=== PATIENT | female | born 1955 | race Caucasian/White ===

== ENCOUNTER 2018-12-14 08:41 | Outpatient (CLI) | payer MEDICARE, MEDICAID ==
[~2018-12-14] VITALS: Ht 157.5 cm; Wt 86.2 kg
[~2018-12-14 08:41] MED LIST: ASPI-1169 PO; ATOR10TA PO; AZIT500T2 PO; LISI-603 PO; NAPR500T6 PO; PANT40TA4 PO; TRAM50TA2 PO
[2018-12-14] MEDS ORDERED: IV NS 0.9% 500 ML IV ONE (09:30)
[2018-12-14] MEDS ORDERED: METOPROLOL TARTRATE INJ 5 MG/5 ML AMPUL IVP ONE (09:30)
[2018-12-14 12:04] LABS: BASOPHILS % (AUTO) 0.5 % (0.0-2.0); EOSINOPHILS % (AUTO) 2.4 % (0.0-6.0); HEMATOCRIT 39 % (33-45); HEMOGLOBIN 13.3 g/dL (11.5-14.8); LYMPHOCYTES # (AUTO) 2.5 /CMM (0.8-4.8); LYMPHOCYTES % (AUTO) 38.3 % (20.0-44.0); MEAN CORPUSCULAR HGB CONC 34 g/dl (31.0-36.0); MEAN CORPUSCULAR VOLUME 86 fL (82-100); MONOCYTES # (AUTO) 0.5 /CMM (0.1-1.30); NEUTROPHILS # (AUTO) 3.4 /CMM (1.8-8.9); NEUTROPHILS % (AUTO) 51.8 % (43.0-81.0); PLATELET COUNT (AUTO) 221 /CMM (150-450); WHITE BLOOD COUNT (AUTO) 6.5 K/uL (4.3-11.0)
[2018-12-14 12:12] LABS: ALBUMIN 3.8 g/dL (3.4-5.0); BILIRUBIN,TOTAL 0.5 mg/dL (0.2-1.0); CALCIUM, SERUM 9.1 mg/dL (8.5-10.1); CREATININE 0.6 mg/dL (0.6-1.3); POTASSIUM 4.1 mmol/L (3.5-5.1); TOTAL PROTEIN, SERUM 8.2 g/dL (6.4-8.2)
[2018-12-22 08:09] LABS: RENIN, PLASMA 1.156 ng/mL/hr (0.167-5.380)
== END 2018-12-14 23:59 | disposition home or self-care (01) ==
LOC: US 08:41
PROVIDERS: ATTEND Internal Medicine Interventional Cardiology
DX: R07.9 Chest pain, unspecified (principal); I10 Essential (primary) hypertension; E11.9 Type 2 diabetes mellitus without complications; E78.5 Hyperlipidemia, unspecified; I70.1 Atherosclerosis of renal artery; M47.814 Spondylosis without myelopathy or radiculopathy, thoracic region; K44.9 Diaphragmatic hernia without obstruction or gangrene; Z79.899 Other long term (current) drug therapy
CPT/HCPCS: 36415; 75574; 80053-TC; 80061-TC; 82088; 84244; 85025-TC

== ENCOUNTER 2020-05-22 18:20 | Emergency (ER) | payer MEDICARE, OTHER ==
[~2020-05-22] VITALS: Ht 170.2 cm; Wt 87.5 kg
[2020-05-22] MEDS ORDERED: ONDANSETRON HCL/PF 4 MG/2 ML VIAL IVP ONE (18:30)
[2020-05-22] MEDS ORDERED: MORPHINE SULFATE INJ 4 MG/ML DISP.SYRIN ONE (18:30)
[2020-05-22] MEDS ORDERED: IV NS 0.9% 500 ML BAG IV ONE (18:30)
[2020-05-22] MEDS ORDERED: ONDANSETRON HCL/PF 4 MG/2 ML VIAL ONE (18:30)
[2020-05-22] MEDS ORDERED: MORPHINE SULFATE INJ 2 MG/ML DISP.SYRIN IV ONE (18:30)
[2020-05-22 18:37] LABS: BASOPHILS % (AUTO) 0.4 % (0.0-2.0); EOSINOPHILS % (AUTO) 1.2 % (0.0-6.0); HEMATOCRIT 39 % (33-45); LYMPHOCYTES # (AUTO) 2.1 /CMM (0.8-4.8); LYMPHOCYTES % (AUTO) 22.3 % (20.0-44.0); MEAN CORPUSCULAR HGB CONC 33 g/dl (31.0-36.0); MEAN CORPUSCULAR VOLUME 84 fL (82-100); MONOCYTES # (AUTO) 0.6 /CMM (0.1-1.30); MONOCYTES % (AUTO) 6.7 % (2.0-12.0); NEUTROPHILS # (AUTO) 6.5 /CMM (1.8-8.9); NEUTROPHILS % (AUTO) 69.4 % (43.0-81.0); PLATELET COUNT (AUTO) 195 /CMM (150-450); RED BLOOD CELL COUNT(AUTO) 4.61 MIL/uL (4.0-5.2); WHITE BLOOD COUNT (AUTO) 9.4 K/uL (4.3-11.0)
[2020-05-22 18:46] LABS: BILIRUBIN,URINE Negative (NEGATIVE); BLOOD, URINE Negative Ery/uL (NEGATIVE); COLOR,URINE Yellow (YELLOW); KETONES,URINE Negative (NEGATIVE); LEUKOCYTE ESTERASE ,URINE Negative (NEGATIVE); NITRITE, URINE Negative (NEGATIVE); PROTEIN,URINE Negative (NEGATIVE); UGLUCOSE Negative (NEGATIVE); UROBILINOGEN,URINE 0.2 EU/dL (0.2)
[2020-05-22 18:47] LABS: APPEARANCE,URINE SLIGHTLY HAZY (CLEAR)
[2020-05-22 18:47] LABS: CALCIUM, SERUM 9.2 mg/dL (8.5-10.1); CREATININE 0.6 mg/dL (0.6-1.3); POTASSIUM 3.8 mmol/L (3.5-5.1)
--- NOTE | 2020-05-22 18:48 | NUR ---
urine collected and sent to lab
--- NOTE | 2020-05-22 18:48 | NUR ---
patient came in to the er c/o right flank pain radiating to RLQ. On room air, breathing evenly and unlabored. connected to the monitor and pulse ox. kept comfortable, will continue to montior accordingly.
[2020-05-22 18:58] LABS: BACTERIA,URINE Rare /HPF (None Seen); RBC,URINE 0-2 /HPF (0-2); SQUAMOUS EPITHELIAL CELL,UR Few /HPF (None Seen); WBC,URINE 0-2 /HPF (0-3)
[2020-05-22 18:58] LABS: ALBUMIN 3.9 g/dL (3.4-5.0); BILIRUBIN,DIRECT 0.2 mg/dL (0.0-0.2); BILIRUBIN,TOTAL 0.7 mg/dL (0.2-1.0); TOTAL PROTEIN, SERUM 7.9 g/dL (6.4-8.2)
--- NOTE | 2020-05-22 19:15 | NUR ---
PT HAS NO MEDICAL MEDICAL COMPLAINTS AT THIS TIME. AAOX4, VSS. WILL CONTINUE TO MONITOR
--- NOTE | 2020-05-22 19:36 | NUR ---
REPORT RECEIVED FROM DAVID CHENG FOR KANIKA
--- NOTE | 2020-05-22 21:34 | NUR ---
Patient discharged to home in stable condition. Written and verbal after care instructions given. Patient verbalizes understanding of instruction.IV removed. Catheter intact and site benign. Pressure and 4x4 applied to site. No bleeding noted.pt. ambulatory with a steady gait
[2020-05-22 21:35] VITALS: BP 128/74
== END 2020-05-22 21:35 | disposition home or self-care (01) ==
LOC: ER 18:30
DX: R10.9 Unspecified abdominal pain (principal); I10 Essential (primary) hypertension; Z79.899 Other long term (current) drug therapy; Z79.82 Long term (current) use of aspirin
CPT/HCPCS: 36415; 74176; 80048; 80076; 81001; 83690; 85025; 87086; 96374; 96375; 99284; J2270; J2405; J7030; J7040; 81000-TC

== ENCOUNTER 2020-10-22 21:20 | Emergency (ER) | payer MEDICARE, OTHER ==
[~2020-10-22] VITALS: Ht 170.2 cm; Wt 87.5 kg
[~2020-10-22 21:20] MED LIST changes: -PANT40TA4 PO; +PANT40TA49 PO
[2020-10-22 21:58] LABS: BASOPHILS % (AUTO) 0.7 % (0.0-2.0); EOSINOPHILS % (AUTO) 1.1 % (0.0-6.0); HEMATOCRIT 40 % (33-45); HEMOGLOBIN 13.5 g/dL (11.5-14.8); LYMPHOCYTES # (AUTO) 1.4 /CMM (0.8-4.8); LYMPHOCYTES % (AUTO) 34.5 % (20.0-44.0); MEAN CORPUSCULAR HGB CONC 34 g/dl (31.0-36.0); MEAN CORPUSCULAR VOLUME 85 fL (82-100); MONOCYTES # (AUTO) 0.7 /CMM (0.1-1.30); MONOCYTES % (AUTO) 17.5 % (2.0-12.0); NEUTROPHILS # (AUTO) 1.9 /CMM (1.8-8.9); NEUTROPHILS % (AUTO) 46.2 % (43.0-81.0); PLATELET COUNT (AUTO) 151 /CMM (150-450); RED BLOOD CELL COUNT(AUTO) 4.68 MIL/uL (4.0-5.2)
--- NOTE | 2020-10-22 21:59 | NUR ---
RUBY FROM HOME TO ER BED 6. AAOX4. SOB BUT SATTING AT 98%. AMBULATORY. CAME IN FOR SOB, COUGH AND CONGESTION. PT WAS COVID POSITIVE YESTERDAY. AWAITING MD FOR EVAL. ORDERS RECEIVED, NOTED AND CARRIED OUT. IV LINE ESTABLISHED ON L HAND 20G, BLOOD DRAWN AND GIVEN TO LAB. PT ON MONITOR.
[2020-10-22 22:18] LABS: CALCIUM, SERUM 8.9 mg/dL (8.5-10.1); CREATININE 0.6 mg/dL (0.6-1.3)
--- NOTE | 2020-10-22 23:03 | NUR ---
Patient discharged to home in stable condition. Written and verbal after care instructions given. Patient verbalizes understanding of instruction. Pt ambulatory with a steady gait IV removed. Catheter intact and site benign. Pressure and 4x4 applied to site. No bleeding noted.
[2020-10-22 23:04] VITALS: BP 169/90
[2020-10-22 23:14] LABS: LYMPHOCYTES % (MANUAL) 34 % (16-48); MONOCYTES % (MANUAL) 18 % (0-11.0); NEUTROPHILS % (MANUAL) 48 (42-76)
== END 2020-10-22 23:04 | disposition home or self-care (01) ==
LOC: ER 21:22
DX: U07.1 COVID-19 (principal); I11.9 Hypertensive heart disease without heart failure; Z79.899 Other long term (current) drug therapy
CPT/HCPCS: 36415; 71045-TC; 80048-TC; 83605-TC; 85025-TC; 87040-TC; C9803

== ENCOUNTER 2022-09-12 17:44 | Emergency (ER) | payer MEDICARE, OTHER ==
[~2022-09-12] VITALS: Ht 157.5 cm; Wt 102.1 kg
[~2022-09-12 17:44] MED LIST changes: -LISI-603 PO; +LISI20TA30 PO
--- NOTE | 2022-09-12 17:50 | NUR ---
MATT [id number] From Home Abdominal pain-back pain/dizzy Hx kidney stones. PLACED ON BED, AAOX4, IN PAIN 8 PS.
--- NOTE | 2022-09-12 18:01 | NUR ---
IV LINE STARTED BLOOD/CULTURES DRAWN LAB CALLED FOR BACTERIOLOGY RESEARCH ASSISTANT.
[2022-09-12 18:27] LABS: BASOPHILS % (AUTO) 0.3 % (0.0-2.0); EOSINOPHILS % (AUTO) 0.6 % (0.0-6.0); HEMATOCRIT 42 % (33-45); HEMOGLOBIN 14.1 g/dL (11.5-14.8); LYMPHOCYTES # (AUTO) 1.5 K/uL (0.8-4.8); LYMPHOCYTES % (AUTO) 16.4 % (20.0-44.0); MEAN CORPUSCULAR HGB CONC 34 g/dl (31.0-36.0); MEAN CORPUSCULAR VOLUME 83 fL (82-100); MONOCYTES # (AUTO) 0.7 K/uL (0.1-1.30); MONOCYTES % (AUTO) 7.5 % (2.0-12.0); NEUTROPHILS % (AUTO) 75.2 % (43.0-81.0); PLATELET COUNT (AUTO) 188 K/uL (150-450); RED BLOOD CELL COUNT(AUTO) 4.98 MIL/uL (4.0-5.2); WHITE BLOOD COUNT (AUTO) 9.4 K/uL (4.3-11.0)
[2022-09-12] MEDS ORDERED: MORPHINE SULFATE INJ 4 MG/ML DISP.SYRIN ONE (18:29)
[2022-09-12] MEDS ORDERED: VANCOMYCIN 1 GM in IV D5W 250 ML IV ONE (18:30)
[2022-09-12] MEDS ORDERED: MORPHINE SULFATE INJ 2 MG/ML DISP.SYRIN IV ONE (18:30)
[2022-09-12] MEDS ORDERED: CEFEPIME 1 GM in IV D5W 50 ML IV ONE (18:30)
--- NOTE | 2022-09-12 18:35 | NUR ---
U/S TECH AT BEDSIDE
[2022-09-12] MEDS ORDERED: IV NS 0.9% 1,000 ML IV ONE (19:00)
[2022-09-12] MEDS ORDERED: ACETAMINOPHEN ES 500 MG TABLET PO ONE (19:00)
[2022-09-12 19:11] LABS: CREATININE 0.7 mg/dL (0.6-1.3); POTASSIUM 3.8 mmol/L (3.5-5.1)
[2022-09-12 19:18] LABS: ALBUMIN 3.7 g/dL (3.4-5.0); BILIRUBIN,DIRECT 0.3 mg/dL (0.0-0.2); BILIRUBIN,TOTAL 1.1 mg/dL (0.2-1.0); TOTAL PROTEIN, SERUM 8.3 g/dL (6.4-8.2)
[2022-09-12] MEDS ORDERED: IV NS 0.9% 250 ML IV ONE (19:20)
[2022-09-12] MEDS ORDERED: IOHEXOL-300 100 ML VIAL IV ONE (19:20)
--- NOTE | 2022-09-12 20:27 | NUR ---
DR. LAW CORREA ON PHONE CALL WITH DR. BUCIO GENERAL SURGEON
--- NOTE | 2022-09-12 20:39 | NUR ---
SWAB FOR COVID19 AND RAPID INFLUENZA SENT TO LAB
--- NOTE | 2022-09-12 20:55 | NUR ---
CALLED [facility], SPOKE TO [place] ONLY ACCEPTING LIFE THREATENING TRANSFERS AT THE MOMENT
--- NOTE | 2022-09-12 21:15 | NUR ---
[facility] CALLED FOR HIGHER LEVEL OF CARE. NO BED CAPACITY.
--- NOTE | 2022-09-12 21:20 | NUR ---
[facility] CALLED FOR HIGHER LEVEL OF CARE. NO BED CAPACITY.
--- NOTE | 2022-09-12 22:33 | NUR ---
CALLED [facility], LEFT VOICEMAIL
--- NOTE | 2022-09-13 00:23 | NUR ---
URINE SPECIMEN SENT TO LAB
[2022-09-13 00:52] LABS: BILIRUBIN,URINE NEGATIVE (NEGATIVE); LEUKOCYTE ESTERASE ,URINE TRACE (NEGATIVE); NITRITE, URINE NEGATIVE (NEGATIVE); PROTEIN,URINE NEGATIVE (NEGATIVE); UGLUCOSE NEGATIVE (NEGATIVE); UROBILINOGEN,URINE 0.2 EU/dL (0.2)
[2022-09-13 00:56] LABS: COLOR,URINE LIGHT YELLOW (YELLOW)
[2022-09-13 07:41] LABS: BACTERIA,URINE None seen /HPF (None Seen); RBC,URINE NONE SEEN /HPF (0-2); SQUAMOUS EPITHELIAL CELL,UR Few /HPF (None Seen)
[2022-09-13] MEDS ORDERED: TRAM50TA2 PO (08:34)
[2022-09-13] MEDS ORDERED: AMOX-430 PO (08:34)
[2022-09-13] MEDS ORDERED: IBUP-1955 PO (08:34)
[2022-09-13 08:44] VITALS: BP 124/74
--- NOTE | 2022-09-13 08:44 | NUR ---
IV removed. Catheter intact and site benign. Pressure and 4x4 applied to site. No bleeding noted.Patient discharged to home in stable condition. Written and verbal after care instructions given. Patient verbalizes understanding of instruction.
== END 2022-09-13 08:45 | disposition home or self-care (01) ==
LOC: ER 17:54
DX: R10.10 Upper abdominal pain, unspecified (principal); K83.3 Fistula of bile duct; K31.6 Fistula of stomach and duodenum; Z90.49 Acquired absence of other specified parts of digestive tract; K44.9 Diaphragmatic hernia without obstruction or gangrene; K42.9 Umbilical hernia without obstruction or gangrene; Z98.1 Arthrodesis status; I11.9 Hypertensive heart disease without heart failure; Z20.822 Contact with and (suspected) exposure to COVID-19
CPT/HCPCS: 99285; 74177; 96365; 76705; 71045; 96367; 96375; 87426; 93005; 87804; 84145; 85025; 80048; 87040 ×2; 83605; 83690; 80076; 36415; 84484; 85730; 87086; 81001; J2270; J3370; J7060; J7050; J0692; Q9967; C9803

== ENCOUNTER 2023-07-15 17:33 | Emergency (ER) | payer MEDICARE, OTHER ==
[~2023-07-15] VITALS: Ht 157.5 cm; Wt 81.6 kg
[~2023-07-15 17:33] MED LIST changes: +AMOX-430 PO; +IBUP-1955 PO
[2023-07-15] MEDS ORDERED: IV NS 0.9% 1,000 ML IV ONE ×2 (18:30→22:00)
[2023-07-15] MEDS ORDERED: ACETAMINOPHEN 325 MG TABLET PO ONE (18:30)
[2023-07-15] MEDS ORDERED: MORPHINE SULFATE INJ 2 MG/ML DISP.SYRIN IV ONE (18:30)
[2023-07-15] MEDS ORDERED: ACETAMINOPHEN ES 500 MG TABLET ONE (18:39)
[2023-07-15] MEDS ORDERED: MORPHINE SULFATE INJ 4 MG/ML DISP.SYRIN ONE (18:39)
[2023-07-15 18:43] LABS: BASOPHILS # (AUTO) 0.1 K/uL (0.0-0.2); BASOPHILS % (AUTO) 1.1 % (0.0-2.0); EOSINOPHILS % (AUTO) 0.3 % (0.0-6.0); HEMATOCRIT 40 % (33-45); HEMOGLOBIN 13.4 g/dL (11.5-14.8); LYMPHOCYTES # (AUTO) 0.9 K/uL (0.8-4.8); LYMPHOCYTES % (AUTO) 8.7 % (20.0-44.0); MEAN CORPUSCULAR HEMOGLOBIN 28 PG (26.0-33.0); MEAN CORPUSCULAR HGB CONC 33 g/dl (31.0-36.0); MEAN CORPUSCULAR VOLUME 85 fL (82-100); MONOCYTES # (AUTO) 0.5 K/uL (0.1-1.30); MONOCYTES % (AUTO) 4.7 % (2.0-12.0); NEUTROPHILS # (AUTO) 8.9 K/uL (1.8-8.9); NEUTROPHILS % (AUTO) 85.2 % (43.0-81.0); PLATELET COUNT (AUTO) 195 K/uL (150-450); RED BLOOD CELL COUNT(AUTO) 4.76 MIL/uL (4.0-5.2); RED CELL DISTRIBUTION WIDTH 14.7 % (11.5-15.0); WHITE BLOOD COUNT (AUTO) 10.4 K/uL (4.3-11.0)
[2023-07-15 18:53] LABS: CALCIUM, SERUM 9.5 mg/dL (8.5-10.1); CREATININE 0.6 mg/dL (0.6-1.3); POTASSIUM 3.8 mmol/L (3.5-5.1)
[2023-07-15 18:59] LABS: ALBUMIN 3.7 g/dL (3.4-5.0); BILIRUBIN,DIRECT 0.2 mg/dL (0.0-0.2); BILIRUBIN,TOTAL 0.8 mg/dL (0.2-1.0); TOTAL PROTEIN, SERUM 8.7 g/dL (6.4-8.2)
[2023-07-15 19:01] LABS: LACTIC ACID 1.7 mmol/L (0.4-2.0)
[2023-07-15] MEDS ORDERED: IOHEXOL-300 100 ML VIAL IV ONE (19:26)
[2023-07-15] MEDS ORDERED: IV NS 0.9% 250 ML IV ONE (19:26)
[2023-07-15 19:57] LABS: APPEARANCE,URINE CLEAR (CLEAR); BILIRUBIN,URINE NEGATIVE (NEGATIVE); BLOOD, URINE NEGATIVE Ery/uL (NEGATIVE); COLOR,URINE YELLOW (YELLOW); KETONES,URINE NEGATIVE (NEGATIVE); LEUKOCYTE ESTERASE ,URINE NEGATIVE (NEGATIVE); NITRITE, URINE NEGATIVE (NEGATIVE); PH,URINE 8.5 (5.0-8.0); PROTEIN,URINE TRACE mg/dl (NEGATIVE); UGLUCOSE NEGATIVE (NEGATIVE)
[2023-07-15 20:18] LABS: ADD URINE CULTURE NO; BACTERIA,URINE None seen /HPF (None Seen); RBC,URINE 0-2 /HPF (0-2); SQUAMOUS EPITHELIAL CELL,UR Rare /HPF (None Seen); WBC,URINE 0-2 /HPF (0-3)
[2023-07-15] MEDS ORDERED: HYDROMORPHONE 1 MG/1 ML DISP.SYRIN IV ONE (22:00)
[2023-07-15] MEDS ORDERED: HYDROMORPHONE 1 MG/1 ML DISP.SYRIN ONE (22:33)
[2023-07-16 00:04] VITALS: BP 135/73; TEMP 98.4; O2SAT 94
== END 2023-07-16 00:05 | disposition home or self-care (01) ==
LOC: ER 17:36
DX: K83.3 Fistula of bile duct (principal); I10 Essential (primary) hypertension; Z90.49 Acquired absence of other specified parts of digestive tract; Z79.899 Other long term (current) drug therapy; Z20.822 Contact with and (suspected) exposure to COVID-19
CPT/HCPCS: 99285; 74177; 96374; 96361; 96375; 87426; 85025; 80048; 83605; 83690; 80076; 81001; 36415; J2270; J7030 ×2; J7050; Q9967; J1170; C9803